=== PATIENT | male | born 1955 | race Caucasian/White ===

== ENCOUNTER 2017-05-28 08:00 | Outpatient (CLI) | payer OTHER ==
[2017-05-28 14:42] LABS: BILIRUBIN,URINE NEGATIVE (NEGATIVE)
[2017-05-28 14:43] LABS: UA w/ MICROSCOPIC CHARGE YES
[2017-05-28 15:36] LABS: WBC,URINE >25 /HPF (0-3)
[2017-05-28 15:37] LABS: UR CULTURE IF IND INDICATED
== END 2017-05-28 08:01 | disposition home or self-care (01) ==
LOC: LAB.R 08:00
DX: N39.0 Urinary tract infection, site not specified (principal)
CPT/HCPCS: 81001; 81003; 87086